=== PATIENT | male | born 1935 | race African-American/Black ===

== ENCOUNTER 2022-01-24 10:39 | Emergency (ER) | payer MEDICARE ==
[~2022-01-24] VITALS: Ht 175.3 cm; Wt 74.8 kg
[2022-01-24 10:54] VITALS: BP_SYST 154
--- NOTE | 2022-01-24 11:02 | NUR ---
Patient to ER bed 4 to gown for evaluation. Side rails up. Report given to Mel CUEVAS.
--- NOTE | 2022-01-24 11:09 | NUR ---
Assumed care of pt who was brought from home accompanied by Daughter c/o abdominal pain x 4 days. 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 Pt states pain is sharp 6/10, LLQ. Denies constipation, states bowel movements were loose but have returned to normal over last 24 hours. Pt is A&Ox4, calm and cooperative. Denies f/v/d. Will monitor and provide care as ordered.
--- NOTE | 2022-01-24 11:15 | NUR ---
ER Dr. Noé MD at bedside examining patient.
--- NOTE | 2022-01-24 11:32 | NUR ---
Patient transported to radiology via wheelchair, accompanied by staff.
[2022-01-24 11:44] LABS: BASOPHILS % (AUTO) 0.3 % (0.0-2.0); EOSINOPHILS % (AUTO) 0.5 % (0.0-4.0); LYMPHOCYTES # (AUTO) 1.1 K/uL (1.0-5.5); LYMPHOCYTES % (AUTO) 13.5 % (20.5-51.5); MEAN CORPUSCULAR VOLUME 96 fL (79.0-98.0); MONOCYTES # (AUTO) 0.6 K/uL (0.0-1.0); MONOCYTES % (AUTO) 7.2 % (1.7-9.3); NEUTROPHILS # (AUTO) 6.6 K/uL (1.8-7.7); NEUTROPHILS % (AUTO) 78.5 % (40.0-70.0); PLATELET COUNT (AUTO) 127 K/uL (130-430); RED CELL DISTRIBUTION WIDTH 13.5 % (9.0-15.0); WHITE BLOOD COUNT (AUTO) 8.4 K/uL (4.8-10.8)
[2022-01-24 12:01] LABS: BILIRUBIN,URINE NEGATIVE (NEGATIVE); BLOOD, URINE 3+ (NEGATIVE); CLARITY/URINE CLEAR (CLEAR); COLOR,URINE YELLOW (YELLOW); GLUCOSE,URINE 1+ (NEGATIVE); KETONES,URINE NEGATIVE (NEGATIVE); LEUKOCYTE ESTERASE ,URINE 1+ (NEGATIVE); NITRITE, URINE NEGATIVE (NEGATIVE); PH,URINE 6.5 (5.0-8.0); PROTEIN URINE NEGATIVE (NEGATIVE)
[2022-01-24 12:43] LABS: ANION GAP 10 (5-15); CALCIUM 9.5 mg/dL (8.4-11.0); CHLORIDE 103 mmol/L (98-107); CREATININE 1.75 mg/dL (0.55-1.30); GLUCOSE 167 mg/dL (70-99); UREA NITROGEN, BLOOD 19 mg/dL (8-21)
[2022-01-24 12:43] LABS: BACTERIA,URINE None Seen /HPF (None Seen)
[2022-01-24 12:47] LABS: ALANINE AMINOTRANSFERASE 39 U/L (12-78); ALBUMIN 3.8 g/dL (3.4-4.8); AMYLASE 127 U/L (0-100); ASPARTATE AMINOTRANSFERASE 28 U/L (10-37); C-REACTIVE PROTEIN QUANT 1.3 mg/dL (0-0.5); LIPASE 236 U/L (73-393); TOTAL BILIRUBIN 0.9 mg/dL (0.0-1.0)
[2022-01-24] MEDS ORDERED: HYDR-3917 PO (12:59)
[2022-01-24] MEDS ORDERED: IBUP-1969 PO (12:59)
--- NOTE | 2022-01-24 13:41 | NUR ---
Patient given written and verbal discharge instructions and verbalizes understanding. ER MD discussed with patient the results and treatment provided. Patient in stable condition. ID arm band removed. Rx of hydrocodone, ibuprofen given. Patient educated on pain management and to follow up with PMD. Pain Scale 2/10. Opportunity for questions provided and answered. Medication side effect fact sheet provided.
== END 2022-01-24 13:41 | disposition home or self-care (01) ==
LOC: SED 10:39
DX: R10.32 Left lower quadrant pain (principal); R11.10 Vomiting, unspecified
CPT/HCPCS: 36415; 76376; 80053; 81000; 82150; 83605; 83690; 85025; 86140; 99284